=== PATIENT | male | born 1995 | race American Indian/Alaskan Native ===

== ENCOUNTER 2017-05-07 14:26 | Emergency (ER) | payer SELFPAY ==
[2017-05-07 15:15] VITALS: BP 130/97
[2017-05-07] MEDS ORDERED: ROCEPHIN IM ONE (19:22)
[2017-05-07] MEDS ORDERED: ZITHROMAX PO ONE (19:22)
[2017-05-07] MEDS ORDERED: XYLOCAINE 1% MPF 5 mL INFILTRATI ONE (19:22)
--- NOTE | 2017-05-07 19:27 | Emergency Department Report ---
HPI - General Chief Complaint: Urogenital-Male Time Seen by Provider: 05/07/17 15:58 - HPI HPI: 21-year-old male presents with a 2 day history of penile discharge. The patient says "I think I have gonorrhea again." He has a small amount of burning with urination but mostly says he is having copious discharge from the penis that has soiled his boxer shorts and requires him to put some tissue paper inside of the underwear. He denies any lesions to the penis or scrotum. He says he had gonorrhea one time in the past. He is actually active with multiple different partners and does not always use protection. He has not taken anything for his symptoms prior to presentation. No recent travel or sick contacts at home. ED Past Medical Hx - Past Medical History Additional medical history: Hx of STD - Surgical History Past Surgical History?: No - Social History Smoking Status: Current Every Day Smoker Substance Use Type: Alcohol, Marijuana - Medications Home Medications: Home Medications Medication Instructions Recorded Confirmed Last Taken Type No Known Home Medications [No 02/05/13 02/05/13 Unknown History Reported Home Medications] ED Review of Systems ROS: Stated complaint: STD Other details as noted in HPI Comment: All other systems reviewed and negative Constitutional: denies: chills, fever Eyes: denies: eye pain, eye discharge, vision change ENT: denies: ear pain, throat pain Respiratory: denies: cough, shortness of breath, wheezing Cardiovascular: denies: chest pain, palpitations Gastrointestinal: denies: abdominal pain, nausea, diarrhea Genitourinary: dysuria, discharge Musculoskeletal: denies: back pain, joint swelling, arthralgia Skin: denies: rash, lesions Neurological: denies: headache, weakness, paresthesias Physical Exam - Physical Exam Vital Signs: Vital Signs 05/07/17 15:11 Temperature 97.8 F Pulse Rate 66 Respiratory 16 Rate Blood Pressure 130/97 O2 Sat by Pulse 100 Oximetry Physical Exam: GENERAL: The patient is well-developed well-nourished. HENT: Normocephalic. Atraumatic. Patient has moist mucous membranes. EYES: Extraocular motions are intact. NECK: Supple. Trachea is midline. CHEST/LUNGS: Clear to auscultation. There is no respiratory distress noted. HEART/CARDIOVASCULAR: Regular. There is no tachycardia. There is no murmur. ABDOMEN: Abdomen is soft, nontender. SKIN: Skin is warm and dry. No lesions or rash seen to the penis or scrotum. NEURO: The patient is awake, alert, and oriented. The patient is cooperative. The patient has normal speech and gait. MUSCULOSKELETAL: There is no tenderness or deformity. There is no limitation range of motion. There is no evidence of acute injury. : There is a moderate amount of white discharge seen coming from the urethra. No penile or scrotal lesions seen. ED Course Vital Signs 05/07/17 15:11 Temperature 97.8 F Pulse Rate 66 Respiratory 16 Rate Blood Pressure 130/97 O2 Sat by Pulse 100 Oximetry ED Medical Decision Making - Medical Decision Making Patient with a history of gonorrhea presents with 2 day history of moderate to copious penile discharge. He was treated empirically with Rocephin and azithromycin for gonorrhea and chlamydia. He does not have any suprapubic discomfort or any significant dysuria and his symptoms are most likely secondary to urethritis. We spoke about accessing safe sex. He will be given a referral for the local health department as well as a primary care clinic. He will return to the ER with any worsening of symptoms or any acute distress. - Differential Diagnosis gonorrhea, chlamydia, nonspecific urethritis, UTI Critical Care Time: No Critical care attestation.: If time is entered above; I have spent that time in minutes in the direct care of this critically ill patient, excluding procedure time. ED Disposition Clinical Impression: Urethritis Disposition: DC-01 TO HOME OR SELFCARE Is pt being admited?: No Condition: Stable Instructions: Nonspecific Urethritis in Men (ED) Additional Instructions: Please follow up with a primary care physician. I have also given a referral for the health department in case he would like to follow up for any further testing. The medications that you received today in the hospital are to treat gonorrhea and Chlamydia empirically. Do not engage in any sexual activity for at least 1 week and after that it is still recommended that you use protection. Return to the emergency Department with any worsening of your symptoms or any acute distress. Referrals: PRIMARY CARE [Primary Care Provider] - 3-5 Days [facility] [Outside] - 3-5 Days [facility] [Outside] - 3-5 Days Forms: STI Treatment and Prevention Time of Disposition: 19:29
== END 2017-05-07 19:32 | disposition home or self-care (01) ==
LOC: ED 14:26
DX: N34.2 Other urethritis (principal); F17.200 Nicotine dependence, unspecified, uncomplicated; F12.10 Cannabis abuse, uncomplicated; Z91.010 Allergy to peanuts
CPT/HCPCS: 96372; 99282; J0696

== ENCOUNTER 2018-09-12 10:41 | Emergency (ER) | payer SELFPAY ==
--- NOTE | 2018-09-12 12:05 | Emergency Department Report ---
Chief Complaint: Urogenital-Male Stated Complaint: DISCHARGE Time Seen by Provider: 09/12/18 11:09 - HPI History of Present Illness: This 23-year-old male presents to ED complaining of penile discharge times yesterday. Patient states the he may have an STD. He denies dysuria abdominal pelvic pain, fever, testicular pain or swelling or penile lesions. - ROS Review of Systems: As noted in HPI, denies all other - Exam Physical Exam: GENERAL: Alert and oriented x3, no apparent distress, Normal Gait, atraumatic. HEAD: Head is normocephalic and a-traumatic. ABDOMEN: No organomegaly was noted,Positive bowel sounds, soft, and non- distended. BACK: Full range of motion, no spinal tenderness, nontender to palpation. SKIN: Warm and dry, No lesions, No ulceration or induration present. MSE screening note: Focused history and physical exam performed. Due to findings the following was ordered: ED Medical Decision Making - Medical Decision Making 18-year-old male presents with possible STD exposure. ED course: Discussed with patient that this is not a medical emergency and he can be screened out today and follow-up with [facility] tomorrow once to open. Discussed testing and patient is to abstain from sex 7-10 days as treatment until tested and treated Discussed the follow-up with the health department for further STD testing. Patient agrees understanding instructions and will follow-up with outside medical clinic tomorrow Patient's alert and oriented times 3. Vital signs are normal patient is in no acute discharge. Patient will be discharged home with instructions. ED Disposition for MSE Clinical Impression: Concern about STD in male without diagnosis Disposition: -01 TO HOME OR SELFCARE Is pt being admited?: No Does the pt Need Aspirin: No Condition: Stable Instructions: Sexually Transmitted Diseases (ED), Safe Sex (ED) Referrals: KING KAUR MD [Primary Care Provider] - 3-5 Days [facility] [Outside] - 3-5 Days [facility] [Outside] - 3-5 Days Forms: Work/School Release Form(ED) Time of Disposition: 12:05
[2018-09-12 12:09] LABS: Bilirubin,Urine NEG (Negative); Blood,Urine NEG (Negative); Color,Urine Yellow (Yellow); Mucus,Urine FEW /HPF; Protein,Urine <15 mg/dL mg/dL (Negative); Urobilinogen,Urine < 2.0 mg/dL (<2.0)
[2018-09-12 13:13] VITALS: BP 131/82
== END 2018-09-12 13:52 | disposition home or self-care (01) ==
LOC: ED 10:41
DX: R36.9 Urethral discharge, unspecified (principal); Z71.1 Person with feared health complaint in whom no diagnosis is made
CPT/HCPCS: 81001; 87086